=== PATIENT | male | born 1950 | race Caucasian/White ===

== ENCOUNTER 2019-10-16 05:40 | Day surgery (SDC) | payer MEDICARE, OTHER ==
[2019-10-16] MEDS ORDERED: Lactated Ringers 1,000 ML IV SCH (06:30)
[2019-10-16] MEDS ORDERED: Bupivacaine 0.5% 30 ML SDV ONE (06:38)
[2019-10-16] MEDS ORDERED: Povidone-Iodine 10% Soln 118.25 ML Bottle ONE (06:38)
[2019-10-16] MEDS: Nozin Nasal Sanitizer NASBOTH SCH ×2 (06:43→21:04)
[2019-10-16] MEDS ORDERED: ceFAZolin 2 GM in Premix Bag 1 BAG IV ONE (07:30)
[2019-10-16] MEDS ORDERED: Midazolam 1 MG/ML 2 ML SDV ONE ×3 (07:34→10:01)
[2019-10-16] MEDS ORDERED: Propofol 200 MG/20 ML SDV ONE ×2 (07:34→08:57)
[2019-10-16] MEDS ORDERED: fentaNYL 100 MCG/2 ML SDV ONE (07:34)
[2019-10-16] MEDS ORDERED: Lactated Ringers 1,000 ML ONE (08:11)
[2019-10-16] MEDS ORDERED: Magnesium Hydroxide 400 MG/5 ML Susp 30 ML Cup PO PRN (10:27)
[2019-10-16] MEDS ORDERED: Acetaminophen 325 MG Tab PO PRN (10:27)
[2019-10-16] MEDS ORDERED: Morphine 2 MG/ML SYRINGE IVPUSH PRN (10:27)
[2019-10-16] MEDS ORDERED: Ondansetron 4 MG/2 ML SDV IVPUSH PRN (10:27)
[2019-10-16] MEDS ORDERED: Acetaminophen/HYDROcodone 325-5 MG Tab PO PRN (10:27)
[2019-10-16] MEDS ORDERED: Morphine 2 MG/ML SYRINGE IVPUSH ONE (10:33)
--- NOTE | 2019-10-16 11:24 | CR ---
Knee 1V or 2V Bi CLINICAL HISTORY: Postop FINDINGS: Patient is status post recent right knee medial hemiarthroplasty. Components appear well seated. There is some intra-articular and subcutaneous air Impression: Status post medial hemiarthroplasty
[2019-10-16] MEDS: Acetaminophen/oxyCODONE 325-5 MG Tab PO PRN ×4 (11:41→23:53)
[2019-10-16] MEDS: Ketorolac 30 MG/ML SDV IVPUSH SCH ×2 (12:34→21:02)
[2019-10-16] MEDS: Sodium Chloride 0.9% 1,000 ML IV SCH ×2 (12:38→21:01)
[2019-10-16] MEDS: ceFAZolin 1 GM in Premix Bag 1 BAG IV SCH ×2 (14:08→21:15)
[2019-10-16] MEDS: metFORMIN 500 MG Tab PO SCH (16:52)
[2019-10-16] MEDS: Docusate Sodium 100 MG Cap PO SCH (21:02)
[2019-10-16] MEDS: Metoprolol Succinate 25 MG Tab.ER PO SCH (21:05)
[2019-10-17] MEDS: Ketorolac 30 MG/ML SDV IVPUSH SCH ×2 (04:00→11:45)
[2019-10-17] MEDS: Acetaminophen/oxyCODONE 325-5 MG Tab PO PRN ×2 (04:45→12:28)
[2019-10-17] MEDS: Sodium Chloride 0.9% 1,000 ML IV SCH (05:15)
[2019-10-17] MEDS: ceFAZolin 1 GM in Premix Bag 1 BAG IV SCH (06:00)
[2019-10-17] MEDS: metFORMIN 500 MG Tab PO SCH (07:53)
[2019-10-17] MEDS: Losartan 25 MG Tab PO SCH ×2 (07:55→09:58)
[2019-10-17] MEDS: Docusate Sodium 100 MG Cap PO SCH ×2 (07:55→09:58)
[2019-10-17] MEDS: Metoprolol Succinate 25 MG Tab.ER PO SCH ×2 (07:55→09:59)
[2019-10-17] MEDS: Rosuvastatin 10 MG Tab PO SCH ×2 (07:55→09:58)
[2019-10-17] MEDS: Nozin Nasal Sanitizer NASBOTH SCH ×2 (07:56→09:57)
--- NOTE | 2019-10-30 22:14 | OR ---
DATE OF PROCEDURE: 10/16/2019 SURGEON: Solomon Amaya MD PREOPERATIVE DIAGNOSIS: Osteoarthritis, bilateral knees. POSTOPERATIVE DIAGNOSIS: Osteoarthritis, bilateral knees. PROCEDURES: Bilateral medial unicompartmental arthroplasties using Sneed [employer]hew ZUK components with a size D femur, 3 tibia, and 8 mm polyethylene bilaterally. ANESTHESIA: Spinal with sedation. INDICATIONS: Mr. Doty is a very pleasant, 68-year-old gentleman with a history of progressive pain and medial joint space collapse over the past couple of years. He has failed conservative treatment and now presents for medial unicompartmental arthroplasties. Risks, benefits, and potential complications were discussed. PROCEDURE IN DETAIL: After adequate anesthesia was obtained, patient was placed supine with tourniquet about the upper thighs. Both legs were then prepped and draped in a sterile fashion. Left leg was exsanguinated and tourniquet inflated to 300 mmHg pressure. A longitudinal incision was made anteriorly just medial of midline, carried down through the subcutaneous tissues and a medial parapatellar arthrotomy was performed just up to the VMO insertion. The anterior horn of the medial meniscus was excised. Knees inspected, which showed end-stage loss of articular cartilage of femoral condyle with medial osteophyte, but minimal changes of the patellofemoral joint. Anterior lip of the tibial plateau was removed with an oscillating saw. The knee was extended. An extra-medullary alignment jig was then placed. This was aligned and secured. Distal femoral cut was then made. A portion of the jig was removed, the knee was flexed, and the proximal tibia was resected with a combination of oscillating and reciprocating saws. A portion of the tibia removed and the remaining medial meniscus was excised. The femur was sized to a D component. The D cutting block was secured. Remaining cuts were made and drill holes were made for the prosthetic pegs. The tibia was then sized to a size 3 component. This was pinned in place and peg holes were drilled. 8 mm polyethylene trial was placed, which showed excellent balance in flexion and extension with a 2 mm gap. Trials were removed. The knee was thoroughly irrigated with the pulse lavage. Components are cemented in place. Excess cement was removed. The knee was held in full extension with the 8 mm poly and 2 mm spacing guide in place until cement cured. Knee was again taken through range of motion with the 8 mm polyethylene showing excellent balance and a 2 mm gap. Trial insert was removed. The knee was irrigated and the final polyethylene was locked into position. Knee was irrigated once again. This followed by a dilute Betadine solution and a final irrigation with the pulse lavage. The capsule was closed with #2 Ethibond in a running fashion. Skin was closed with 2-0 Vicryl and a running 3-0 Monocryl. Light dressing was applied. The tourniquet was released. Attention was then turned to the right side, which was exsanguinated and tourniquet inflated to 300 mmHg. A similar incision was made, carried through the subcutaneous tissues and a medial parapatellar arthrotomy was performed. The anterior horn of the medial meniscus was excised and the anterior lip of the tibia was resected with an oscillating saw. Similar findings were noted to the opposite side with medial arthritic change and a well-preserved patellofemoral joint. Extramedullary alignment jig was again placed, aligned, and secured. Distal femoral cut was made. A portion jig was removed and the proximal tibia was resected. The remaining medial meniscus was excised. The femur was sized to the same size component. Jig was secured and remaining cuts were made. Tibia was also sized to the same component. Base plate was pinned in place. Peg holes were drilled and the trial polyethylene was placed. 8 mm polyethylene showed excellent balance once again. The trials were removed. The knee was thoroughly irrigated with pulse lavage. Bone surfaces were dried. The components were cemented in place. Excess cement was removed. The knee was held in full extension with an 8 mm trial and the 2 mm gap guide in place until the cement cured. The polyethylene trial was removed. The knee was irrigated. Final polyethylene was locked into position and the knee was irrigated with pulse lavage, followed by dilute Betadine solution and a pulse lavage once again. Capsule was closed with #2 Ethibond in a running fashion. Skin was closed with 2-0 Vicryl and a running 3-0 Monocryl. Steri-Strips were applied. Sterile dressings were placed in both knees with a light compressive Gibson wrap. The patient tolerated procedure well. There were no complications, taken from the operating room in stable condition. Solomon Amaya MD /[id number]
== END 2019-10-17 15:15 | disposition home or self-care (01) ==
LOC: JP.SDS 05:40 → JP.MS 10:27 → JP.SDS 10-17 15:15
PROVIDERS: ATTEND Specialist
DX: M17.0 Bilateral primary osteoarthritis of knee (principal); M25.762 Osteophyte, left knee; M25.761 Osteophyte, right knee; E11.9 Type 2 diabetes mellitus without complications; E66.9 Obesity, unspecified; I10 Essential (primary) hypertension; Z79.899 Other long term (current) drug therapy; Z88.7 Allergy status to serum and vaccine; Z88.8 Allergy status to other drugs, medicaments and biological substances; Z68.27 Body mass index [BMI] 27.0-27.9, adult
CPT/HCPCS: 27446; 36415; 73560; 86850; 86900; 86901; 97110; 97161; 97530; 97535; A9270; C1713; C1776; J0690; J1885; J2250; J2270; J2704; J3010; J7030; J7120; J3490

== ENCOUNTER 2020-05-27 05:24 | Day surgery (SDC) | payer OTHER ==
[2020-05-27] MEDS: Lactated Ringers 1,000 ML IV SCH (06:01)
[2020-05-27] MEDS: Nozin Nasal Sanitizer NASBOTH ONE (06:02)
[2020-05-27] MEDS ORDERED: Povidone-Iodine 10% Soln 118.25 ML Bottle ONE (06:40)
[2020-05-27] MEDS ORDERED: Gentamicin 40 MG/ML 2 ML Vial ONE (06:40)
[2020-05-27 06:41] LABS: CORONAVIRUS COVID-19 NAA NEGATIVE (NEGATIVE)
[2020-05-27] MEDS ORDERED: fentaNYL 100 MCG/2 ML SDV ONE ×2 (07:36→08:13)
[2020-05-27] MEDS ORDERED: Midazolam 1 MG/ML 2 ML SDV ONE (07:36)
[2020-05-27] MEDS ORDERED: Propofol 200 MG/20 ML SDV ONE (07:36)
[2020-05-27] MEDS ORDERED: Lactated Ringers 1,000 ML ONE (08:23)
[2020-05-27] MEDS: Isosulfan Blue 5 ML SDV ONE (08:29)
[2020-05-27] MEDS ORDERED: Ketorolac 60 MG/2 ML SDV ONE (08:39)
[2020-05-27] MEDS: Bupivacaine 0.5% 50 ML MDV ONE (08:44)
[2020-05-27] MEDS: Acetaminophen/HYDROcodone 325-5 MG Tab PO ONE (10:08)
--- NOTE | 2020-06-03 23:49 | OR ---
DATE OF PROCEDURE: 05/27/2020 SURGEON: Solomon Amaya MD PREOPERATIVE DIAGNOSIS: Subcutaneous infection, left knee. POSTOPERATIVE DIAGNOSIS: Subcutaneous infection, left knee. PROCEDURE: Irrigation and debridement, subcutaneous abscess, left knee. ARRESTING GEAR OPERATOR: ALVIN Bernal ANESTHESIA: General. INDICATIONS: Hayden is a very pleasant 69-year-old gentleman who underwent bilateral unicompartmental arthroplasties last fall. Several weeks after the procedure while traveling, developed an infection in the left knee. He was seen multiple times at different locations during his travels over the winter and had several courses of antibiotics but has not had any formal debridement or treatment. On his return back this spring, evaluation reveals swelling and erythema over the medial aspect of the knee without evidence of intraarticular infection. He now presents for irrigation and debridement of subcutaneous infection. Risks, benefits and potential complications of the procedure were discussed. DESCRIPTION OF PROCEDURE: After adequate anesthesia was obtained, patient was placed supine with a tourniquet about the left upper thigh. Left leg was prepped and draped in sterile fashion. Leg was exsanguinated by elevation without use of Esmarch and tourniquet was inflated to 300 mmHg pressure. A small area which was open and draining inferior to the incision was excised sharply in elliptical fashion. Small amount of drainage was present without gross purulence. Cultures were taken from the deep portion of the wound. Prior to manipulating or excising the open wound, the knee was aspirated distal to the infection with return of normal-appearing synovial fluid, this was sent for Gram stain culture. Once the wound was opened and the sinus tract noted in the subcutaneous tissues, the knee was injected with isosulfan blue dye diluted into saline, approximately 30 mL was injected into the knee. The knee was compressed and taken through aggressive range of motion and there was no evidence of a sinus tract communicating from the knee to the wound. A separate incision was made more proximally and dissection carried out into the abscess pocket which measured approximately 3 cm x 4.5 cm. There was a layer of mucinous tissue in the area of the infection, this was debrided using combination of rongeur and curettes. This was thoroughly irrigated both from the inferior wound and the superior wound, irrigating fluid through from the superior and out the inferior until this flowed completely clear. The wound was debrided once again using curettes and lap sponge. No other evidence of infection was present. This was irrigated once again and then the wounds were closed using 2-0 Vicryl and 3-0 Monocryl in the superior incision and nylon interrupted sutures in the inferior incision. Sterile dressing was applied with a light compressive dressing. The patient tolerated the procedure very well. There were no complications. He was taken from the operating room in stable condition. Solomon Amaya MD /[id number]
== END 2020-05-27 10:40 | disposition home or self-care (01) ==
LOC: JP.SDS 05:24
PROVIDERS: ATTEND Specialist
DX: L03.116 Cellulitis of left lower limb (principal); B95.61 Methicillin susceptible Staphylococcus aureus infection as the cause of diseases classified elsewhere; I10 Essential (primary) hypertension; I25.2 Old myocardial infarction; E11.9 Type 2 diabetes mellitus without complications; Z01.812 Encounter for preprocedural laboratory examination; Z20.822 Contact with and (suspected) exposure to COVID-19; Z85.46 Personal history of malignant neoplasm of prostate; Z88.7 Allergy status to serum and vaccine; Z88.8 Allergy status to other drugs, medicaments and biological substances; Z95.818 Presence of other cardiac implants and grafts; Z98.890 Other specified postprocedural states
CPT/HCPCS: 0241U; 11042; 36415; 80048; 87070; 87075; 87077; 87186; 87205; 93005; A9270; J1885; J2250; J2704; J3010; J3370; J3490; J7050; J7120; Q9968; J1580

== ENCOUNTER 2021-11-08 06:00 | Day surgery (SDC) | payer OTHER ==
[2021-11-08] MEDS ORDERED: Lactated Ringers 1,000 ML IV ONE (06:01)
[2021-11-08] MEDS ORDERED: Bupivacaine 0.5% 50 ML MDV ONE (07:18)
[2021-11-08] MEDS ORDERED: fentaNYL 100 MCG/2 ML SDV ONE ×2 (07:20→08:59)
[2021-11-08] MEDS ORDERED: Midazolam 1 MG/ML 2 ML SDV ONE ×2 (07:20→08:59)
[2021-11-08] MEDS ORDERED: Propofol 200 MG/20 ML SDV ONE ×2 (07:21→08:59)
[2021-11-08] MEDS ORDERED: Lactated Ringers 1,000 ML IV SCH ×2 (08:00→09:15)
[2021-11-08] MEDS ORDERED: ceFAZolin 2 GM in Sodium Chloride 0.9% 50 ML IV ONE (08:00)
[2021-11-08] MEDS ORDERED: Nozin Nasal Sanitizer NASBOTH ONE (08:00)
[2021-11-08] MEDS ORDERED: Tranexamic Acid 820 MG in Sodium Chloride 0.9% 50 ML IV ONE (08:45)
[2021-11-08] MEDS ORDERED: Nozin Nasal Sanitizer NASBOTH SCH (09:15)
[2021-11-08] MEDS ORDERED: ceFAZolin 2 GM in Premix Bag 1 BAG IV SCH (10:45)
[2021-11-08] MEDS ORDERED: Sodium Chloride 0.9% 10 ML ONE (11:14)
[2021-11-08] MEDS ORDERED: ePHEDrine 50 MG/ML SDV ONE (11:14)
[2021-11-08] MEDS ORDERED: Phenylephrine 1% 10 MG/ML SDV ONE (11:44)
[2021-11-08] MEDS ORDERED: Acetaminophen/HYDROcodone 325-5 MG Tab PO ONE (14:05)
[2021-11-08] MEDS ORDERED: Sodium Chloride 0.45% 1,000 ML IV ONE (14:30)
[2021-11-08] MEDS ORDERED: metFORMIN 500 MG Tab PO ONE (17:00)
[2021-11-08] MEDS ORDERED: ceFAZolin 1 GM in Premix Bag 1 BAG IV ONE (18:00)
[2021-11-08] MEDS ORDERED: Acetaminophen/oxyCODONE 325-5 MG Tab PO ONE (18:11)
[2021-11-08] MEDS ORDERED: Morphine 2 MG/ML SYRINGE IV ONE (21:48)
[2021-11-08] MEDS ORDERED: Celecoxib 100 MG Cap PO ONE (21:48)
[2021-11-08] MEDS ORDERED: Metoprolol Tartrate 25 MG Tab PO ONE (21:48)
[2021-11-08] MEDS ORDERED: Losartan 25 MG Tab PO ONE (21:48)
[2021-11-08] MEDS ORDERED: Rosuvastatin 10 MG Tab PO ONE (21:48)
[2021-11-09] MEDS ORDERED: ceFAZolin 1 GM in Premix Bag 1 BAG IV ONE ×2 (02:00→10:00)
[2021-11-09] MEDS ORDERED: Acetaminophen/oxyCODONE 325-5 MG Tab PO ONE ×2 (02:54→10:06)
[2021-11-09] MEDS ORDERED: metFORMIN 500 MG Tab PO ONE (08:00)
[2021-11-09] MEDS ORDERED: Metoprolol Tartrate 25 MG Tab PO ONE (09:00)
[2021-11-09] MEDS ORDERED: Celecoxib 100 MG Cap PO ONE (09:00)
== END 2021-11-09 14:15 | disposition home or self-care (01) ==
LOC: JP.SDS 06:00
PROVIDERS: ATTEND Specialist
DX: M16.11 Unilateral primary osteoarthritis, right hip (principal); I10 Essential (primary) hypertension; E78.5 Hyperlipidemia, unspecified; E21.3 Hyperparathyroidism, unspecified; E11.65 Type 2 diabetes mellitus with hyperglycemia; K21.9 Gastro-esophageal reflux disease without esophagitis; I25.10 Atherosclerotic heart disease of native coronary artery without angina pectoris; Z88.8 Allergy status to other drugs, medicaments and biological substances; Z88.7 Allergy status to serum and vaccine; Z88.6 Allergy status to analgesic agent; Z90.49 Acquired absence of other specified parts of digestive tract; Z98.890 Other specified postprocedural states; Z79.899 Other long term (current) drug therapy
CPT/HCPCS: 27130; 36415; 72170; 86850; 86900; 86901; 97110; 97116; 97165; 97530; 97535; A9270; C1713; C1776; J0690; J2250; J2270; J2370; J2704; J3010; J3490; J7120

== ENCOUNTER 2024-12-09 06:43 | Day surgery (SDC) | payer MEDICARE, OTHER ==
[2024-12-09] MEDS ORDERED: Ondansetron 4 MG/2 ML SDV ONE (06:59)
[2024-12-09] MEDS ORDERED: Glycopyrrolate 0.2 MG/ML 5 ML MDV ONE (06:59)
[2024-12-09] MEDS ORDERED: Dexamethasone 4 MG/ML SDV ONE (06:59)
[2024-12-09] MEDS ORDERED: Propofol 200 MG/20 ML SDV ONE (06:59)
[2024-12-09] MEDS ORDERED: Succinylcholine 200 MG/10 ML MDV ONE (06:59)
[2024-12-09] MEDS ORDERED: fentaNYL 250 MCG/5 ML SDV ONE (07:01)
[2024-12-09] MEDS: Lactated Ringers 1,000 ML IV SCH (07:50)
[2024-12-09] MEDS: Bupivacaine 0.25%/EPINEPHrine 1:200,000 30 ML SDV ONE (08:51)
[2024-12-09] MEDS ORDERED: Lactated Ringers 1,000 ML ONE (09:01)
== END 2024-12-09 14:55 | disposition home or self-care (01) ==
LOC: JP.SDS 06:43
PROVIDERS: ATTEND Surgery
DX: K40.30 Unilateral inguinal hernia, with obstruction, without gangrene, not specified as recurrent (principal); E78.5 Hyperlipidemia, unspecified; E11.9 Type 2 diabetes mellitus without complications; I10 Essential (primary) hypertension; I25.10 Atherosclerotic heart disease of native coronary artery without angina pectoris; Z88.8 Allergy status to other drugs, medicaments and biological substances; Z79.82 Long term (current) use of aspirin; Z79.84 Long term (current) use of oral hypoglycemic drugs; Z79.899 Other long term (current) drug therapy
CPT/HCPCS: 00830; 49650; A9270; C1781; J0330; J0690; J1100; J1596; J2405; J2704; J2710; J3010; J7120; J3490